=== PATIENT | female | born 1960 | race Hispanic/Latino ===

== ENCOUNTER 2017-02-14 20:42 | Emergency (ER) | payer OTHER ==
[2017-02-14 20:53] VITALS: BP 162/81; PULSE 71; RESP 20; TEMP 98.1; O2SAT 97
--- NOTE | 2017-02-14 21:11 | C.PDOC ---
History Of Present Illness 56 year old female brought in by EMS for evaluation of head injury and laceration. Patient states she was stepping onto bus and hit the corner of shelf , and went to sit down, she then noticed she was bleeding. She denies LOC, dizziness or other complaints. Time Seen by Provider: 02/14/17 21:00 Chief Complaint (Nursing): Abnormal Skin Integrity History Per: Patient History/Exam Limitations: no limitations Onset/Duration Of Symptoms: Hrs Current Symptoms Are (Timing): Still Present Location Of Injury: Right: Head (parietal scalp) Quality Of Symptoms: denies: Draining Recent travel outside of the [place]: No Past Medical History Reviewed: Historical Data, Nursing Documentation, Vital Signs Vital Signs: Last Vital Signs Temp 98.1 F 02/14/17 20:45 Pulse 71 02/14/17 20:45 Resp 20 02/14/17 21:17 BP 162/81 H 02/14/17 20:45 Pulse Ox 97 02/14/17 21:22 - Medical History PMH: HTN, Hypercholesterolemia, Hyperlipidemia, Hypothyroidism Family History: States: Unknown Family Hx - Social History Hx Alcohol Use: No Hx Substance Use: No - Immunization History Hx Tetanus Toxoid Vaccination: No Hx Influenza Vaccination: Yes (2016) Hx Pneumococcal Vaccination: No Review Of Systems Except As Marked, All Systems Reviewed And Found Negative. Constitutional: Negative for: Fever, Chills Gastrointestinal: Negative for: Nausea, Vomiting Skin: Positive for: Other (laceration to scalp). Negative for: Rash Neurological: Negative for: Weakness, Numbness, Headache, Dizziness Physical Exam - Physical Exam Appears: Non-toxic, No Acute Distress Skin: Normal Color, Warm, Dry Head: Normacephalic, Laceration (2mm punctate laceration to right parietal scalp , no active bleeding) Eye(s): bilateral: Normal Inspection, PERRL, EOMI Neck: No Midline Cervical Tenderness, No Paracervical Tenderness, No Step Off Deformity, Supple Chest: Symmetrical Cardiovascular: Rhythm Regular, No Murmur Respiratory: Normal Breath Sounds, No Rales, No Rhonchi, No Wheezing Gastrointestinal/Abdominal: Soft, No Tenderness Back: Normal Inspection, No Vertebral Tenderness, No Paraspinal Tenderness Extremity: Normal ROM Neurological/Psych: Oriented x3, Normal Speech, Normal Cognition, Normal Cranial Nerves ED Course And Treatment O2 Sat by Pulse Oximetry: 97 (RA) Pulse Ox Interpretation: Normal Laceration - Laceration Repair head Wound Length (In cm): 0.2 Description Of Wound: Stellate Wound Cleansed With: Sterile Saline Wound Examination: Irrigated With Saline, No FB With Wound Exploration Wound Closure: Skin Glue (dermabond) Wound Complexity: Simple Medical Decision Making Medical Decision Making: Patient with scalp laceration. Area cleansed and irrigated with NS, no deep structure involvement. Applied dermabond to wound. Patient remained alert and oriented in no acute distress, no neuro deficits. On reassessment, patient is resting comfortably, and is in no acute distress. Patient instructed to follow up with clinic/PMD within 1-2 days. Disposition Counseled Patient/Family Regarding: Need For Followup - Disposition Disposition: HOME/ ROUTINE Disposition Time: 21:10 Condition: STABLE Additional Instructions: Skin glue was used to close your wound, do not apply ointment to area as it may dissolve glue. Glue patch will gradually fall off in few days. Instructions: Skin Adhesive Care (ED) - POA Present On Arrival: Falls Or Trauma - Clinical Impression Clinical Impression: Scalp laceration - PA / PSYCHOLOGY INSTRUCTOR / Resident Statement MD/DO has reviewed & agrees with the documentation as recorded. - Scribe Statement The provider has reviewed the documentation as recorded by the Nicole Clarke All medical record entries made by the Nicole were at my direction and personally dictated by me. I have reviewed the chart and agree that the record accurately reflects my personal performance of the history, physical exam, medical decision making, and the department course for this patient. I have also personally directed, reviewed, and agree with the discharge instructions and disposition.
== END 2017-02-14 21:17 | disposition home or self-care (01) ==
LOC: C.ER 20:42
DX: S01.01XA Laceration without foreign body of scalp, initial encounter (principal); W22.8XXA Striking against or struck by other objects, initial encounter; Y92.811 Bus as the place of occurrence of the external cause

== ENCOUNTER 2019-01-31 14:28 | Outpatient (CLI) | payer OTHER | END 2019-01-31 14:29 | disposition home or self-care (01) | LOC: C.MAMMO 14:28 | DX: Z12.31 Encounter for screening mammogram for malignant neoplasm of breast (principal) ==